=== PATIENT | male | born 1945 | race Caucasian/White ===

== ENCOUNTER → 2023-10-30 07:49 | Outpatient (REF) | payer OTHER, SELFPAY | LOC: DHCBC/DCA 07:49 | PROVIDERS: ATTENDING PHYSICIAN Internal Medicine Cardiovascular Disease; FAMILY PHYSICIAN Physician Assistant Medical | DX: I49.3 Ventricular premature depolarization (principal) | CPT/HCPCS: 78452; 93017; A9500 ==

== ENCOUNTER → 2023-12-11 09:26 | Outpatient (REF) | payer OTHER, SELFPAY | LOC: DHCBS MAIN 09:26 | PROVIDERS: ATTENDING PHYSICIAN Internal Medicine Cardiovascular Disease; FAMILY PHYSICIAN Physician Assistant Medical | DX: I49.3 Ventricular premature depolarization (principal) | CPT/HCPCS: 93306 ==

== ENCOUNTER → 2024-01-07 08:10 | Outpatient (REF) | payer OTHER, SELFPAY | LOC: RAD 08:10 | PROVIDERS: ATTENDING PHYSICIAN Internal Medicine Cardiovascular Disease; FAMILY PHYSICIAN Physician Assistant Medical | DX: R55 Syncope and collapse (principal) | CPT/HCPCS: 93880 ==

== ENCOUNTER → 2024-11-04 09:12 | Outpatient (REF) | payer OTHER, SELFPAY | LOC: RCS 09:12 | PROVIDERS: ATTENDING PHYSICIAN Internal Medicine Cardiovascular Disease; FAMILY PHYSICIAN Physician Assistant Medical | DX: I49.3 Ventricular premature depolarization (principal) | CPT/HCPCS: 93306 ==